=== PATIENT | female | born 1990 | race Caucasian/White ===

== ENCOUNTER 2017-12-30 10:30 | Inpatient (IN) | payer OTHER ==
[~2017-12-30] VITALS: Ht 172.7 cm; Wt 97.1 kg
[~2017-12-30 10:30] MED LIST: DOLOGEN CAPLET1 EACH PO; FAMOTIDINE10 MG PO; FOLIC ACID/B-6/1 TAB; KETO10TA2 PO; MEDROL4 MG PO; ORPH100T; ORPH100T PO; PHENERGAN25 MG PO; PROTONIX40 MG PO
[2018-01-14] MEDS ORDERED: PRENATAL 19 TA1 EACH PO (08:04)
[2018-01-15] MEDS ORDERED: RHOGAM ULTR1500 UNIT IM (13:42)
== END 2018-01-16 11:33 | DRG 775 ==
LOC: OB/GYN 01-07 10:30 → LDR 01-14 05:41 → OB/GYN 01-14 16:26
PROC: 0DQP0ZZ Repair Rectum, Open Approach (ICD-10-PCS; principal; 2018-01-14)
PROC: 10E0XZZ Delivery of Products of Conception, External Approach (ICD-10-PCS; 2018-01-14)
PROC: 0W8NXZZ Division of Female Perineum, External Approach (ICD-10-PCS; 2018-01-14)
PROC: 3E033VJ Introduction of Other Hormone into Peripheral Vein, Percutaneous Approach (ICD-10-PCS; 2018-01-14)
PROC: 4A1HXCZ Monitoring of Products of Conception, Cardiac Rate, External Approach (ICD-10-PCS; 2018-01-14)
DX: O70.3 Fourth degree perineal laceration during delivery (principal); Z37.0 Single live birth; Z3A.39 39 weeks gestation of pregnancy

== ENCOUNTER 2018-10-22 04:06 | Inpatient (IN) | payer OTHER ==
[~2018-10-22] VITALS: Ht 172.7 cm; Wt 86.2 kg
[~2018-10-22 04:06] MED LIST changes: +PRENATAL 19 TA1 EACH PO; +RHOGAM ULTR1500 UNIT IM
--- NOTE | 2018-10-22 04:21 | NUR ---
SE RECIBE PTE ALERTA Y ORIENTADA X 3 ESFERAS, LA CUAL REFIERE DOLOR ABDOMINAL EN EL CUADRANTE INFERIOR RT, EL CUAL COMENZO JUAN ANTONIO A LAS 8:30 PM APROXIMADAMENTE. PTE EN TIN DE ESPERA.
--- NOTE | 2018-10-22 05:54 | NUR ---
PTE EVALUADA POR DR TANA [place]OLM [place]. MR Dianne AILYN ORIENTA SOBRE EL MISMO, LO CUAL REFIERE ENTENDER, REALIZA PRUEBAS DE LABORATORIO Y ADMINISTRA MEDICAMENTOS RL ORDEN MEDICA Y SIGUIENDO MEDIDAS ASEPTICAS.
[2018-10-23] MEDS ORDERED: PERCOCET 5-3251 EACH PO (08:20)
== END 2018-10-23 09:09 | disposition home or self-care (01) | DRG 343 ==
LOC: ER 04:06 → SEC-K 09:21 → O/R 13:46 → SURG 14:04
PROVIDERS: ADMIT Surgery
PROC: BW21ZZZ Computerized Tomography (CT Scan) of Abdomen and Pelvis (ICD-10-PCS; 2018-10-22)
PROC: 0DTJ4ZZ Resection of Appendix, Percutaneous Endoscopic Approach (ICD-10-PCS; principal; 2018-10-22 11:00)
DX: K35.890 Other acute appendicitis without perforation or gangrene (principal)

== ENCOUNTER 2021-08-27 12:40 | Emergency (ER) | payer OTHER ==
[~2021-08-27] VITALS: Ht 172.7 cm; Wt 90.7 kg
[~2021-08-27 12:40] MED LIST changes: +PERCOCET 5-3251 EACH PO
[2021-08-27] MEDS ORDERED: ECHINACEA65 MG PO (12:50)
[2021-08-27] MEDS ORDERED: OMEGA-31000 MG (12:50)
[2021-08-27] MEDS ORDERED: MONTELUKAST SODI4 M1 (12:51)
== END 2021-08-27 16:14 | disposition home or self-care (01) ==
LOC: ER 12:40
DX: M54.50 Low back pain, unspecified (principal)

== ENCOUNTER 2021-09-03 18:58 | Emergency (ER) | payer OTHER ==
[~2021-09-03] VITALS: Ht 172.7 cm; Wt 90.7 kg
[~2021-09-03 18:58] MED LIST changes: +ECHINACEA65 MG PO; +MONTELUKAST SODI4 M1; +OMEGA-31000 MG
== END 2021-09-03 20:04 | disposition home or self-care (01) ==
LOC: ER 18:58
DX: M54.50 Low back pain, unspecified (principal)

== ENCOUNTER → 2021-09-25 08:00 | Outpatient (CLI) | payer OTHER | END | disposition home or self-care (01) | LOC: RAD 501 → PPH VACUNA 08:00 | PROVIDERS: ATTEND Emergency Medicine Pediatric Emergency Medicine | DX: Z23 Encounter for immunization (principal) ==

== ENCOUNTER 2022-12-29 18:24 | Emergency (ER) | payer OTHER ==
[~2022-12-29] VITALS: Ht 167.6 cm; Wt 88.0 kg
== END 2022-12-29 22:23 | disposition home or self-care (01) ==
LOC: ER 18:24
DX: R10.2 Pelvic and perineal pain (principal)

== ENCOUNTER 2024-12-08 12:03 | Outpatient (CLI) | payer OTHER | END 2024-12-08 12:09 | disposition home or self-care (01) | LOC: MAMO-SONO 12:03 | PROVIDERS: ATTEND Obstetrics & Gynecology | DX: N60.11 Diffuse cystic mastopathy of right breast (principal); N60.12 Diffuse cystic mastopathy of left breast; Z12.31 Encounter for screening mammogram for malignant neoplasm of breast ==

== ENCOUNTER 2025-09-30 12:56 | Outpatient (CLI) | payer OTHER | END 2025-09-30 13:07 | disposition home or self-care (01) | LOC: RAD 12:56 | DX: M25.562 Pain in left knee (principal) ==

== ENCOUNTER 2025-10-04 10:12 | Outpatient (CLI) | payer OTHER | END 2025-10-04 11:00 | disposition home or self-care (01) | LOC: MRI 10:12 | PROVIDERS: ATTEND Orthopaedic Surgery | DX: M25.561 Pain in right knee (principal); M25.562 Pain in left knee | CPT/HCPCS: 73721 ==